=== PATIENT | female | born 1945 | race Caucasian/White ===

== ENCOUNTER 2017-04-30 15:24 | Emergency (ER) | payer MEDICARE | END 2017-04-30 20:15 | disposition home or self-care (01) | LOC: D.ER 15:24 | DX: F41.9 Anxiety disorder, unspecified (principal); I10 Essential (primary) hypertension ==

== ENCOUNTER 2017-05-26 21:39 | Emergency (ER) | payer MEDICARE ==
[2017-05-26 22:14] LABS: BASOPHILS 0.1 % (0-2); EOSINOPHILS 0.6 % (0-7); HEMATOCRIT 41.5 % (36.0-48.0); IMMATURE GRANULOCYTES 0.2 % (0-5); LYMPHOCYTES 21.7 % (15-50); MCH 30.7 pg (26.0-34.0); MCHC 33.7 g/dL (31.0-37.0); MEAN PLATELET VOLUME 10.1 fL (7.4-10.4); MONOCYTES 5.1 % (2-11); NEUTROPHILS 72.3 % (40-80); PLATELET COUNT 256 10x3/uL (130-400); RBC 4.56 10x6/uL (4.00-5.40); RDW 12.5 % (11.5-14.5); WBC 10.9 10x3/uL (4.8-10.8)
[2017-05-26 22:25] LABS: ALBUMIN 3.5 g/dL (3.4-5.0); ANION GAP 16.4 mmol/L (8-16); BILIRUBIN - TOTAL 0.57 mg/dL (0.2-1.3); CALCIUM 10.8 mg/dL (8.5-10.1); CREATININE - SERUM 0.9 mg/dL (0.6-1.3); POTASSIUM - SERUM 3.4 mmol/L (3.5-5.1); PROTEIN - SERUM 7.9 g/dL (6.4-8.2)
[2017-05-26 22:50] LABS: AMYLASE - SERUM 35 U/L (25-115); C-REACTIVE PROTEIN 2.9 mg/dL (0.0-0.9); LIPASE 99 U/L (73-393); PRO BNP 314 pg/mL (0-125); THYROID STIMULATING HORMONE 3.48 uIU/mL (0.36-3.74); TROPONIN-I < 0.017 ng/mL (0.000-0.060)
== END 2017-05-26 23:20 | disposition home or self-care (01) ==
LOC: D.ER 21:39
PROVIDERS: Family Medicine
DX: R53.1 Weakness (principal); I10 Essential (primary) hypertension